=== PATIENT | female | born 1975 | race Caucasian/White ===

== ENCOUNTER → 2016-12-11 | Outpatient (CLI) | payer OTHER ==
--- NOTE | 2016-12-11 09:32 | MM ---
Reason for exam: screening (asymptomatic). Baseline mammogram. Physical Findings: Nurse did not find any significant physical abnormalities on exam. MG Screening Mammo w CAD Bilateral CC and MLO view(s) were taken. The breast tissue is heterogeneously dense. This may lower the sensitivity of mammography. Finding: There are grouped/clustered calcifications in the upper outer quadrant of the left breast. These results were verbally communicated with the patient and result sheet given to the patient on 12/11/16. ASSESSMENT: Incomplete: need additional imaging evaluation, BI-RAD 0 RECOMMENDATION: Special view mammogram of the left breast. [facility] will attempt to contact patient to return for supplemental views.
--- NOTE | 2016-12-11 09:34 | MM ---
Reason for exam: additional evaluation requested from abnormal screening. Physical Findings: Breast exam preformed at baseline screening. MG Work Up Mamm w CAD LT ML, ML with magnification, and CC with magnification view(s) were taken of the left breast. The breast tissue is heterogeneously dense. This may lower the sensitivity of mammography. Finding: There is a 3.6mm group of calcifications in the upper outer quadrant, middle depth of the left breast most of which are rounded and probably benign. No suspicious abnormality on the right breast. These results were verbally communicated with the patient and result sheet given to the patient on 12/11/16. ASSESSMENT: Probably benign, BI-RAD 3 RECOMMENDATION: Follow-up diagnostic mammogram of the left breast in 6 months.
== END | disposition home or self-care (01) ==
LOC: RADMAMWWP 08:05
PROVIDERS: ATTEND Family Medicine
DX: Z12.31 Encounter for screening mammogram for malignant neoplasm of breast (principal); R92.8 Other abnormal and inconclusive findings on diagnostic imaging of breast
CPT/HCPCS: G0202; G0206

== ENCOUNTER → 2018-11-10 | Outpatient (CLI) | payer BC, OTHER ==
--- NOTE | 2018-11-10 15:24 | US ---
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 TECHNIQUE/FINDINGS: Targeted ultrasound was performed of the left popliteal fossa for the palpable ab normality. 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
== END | disposition home or self-care (01) ==
LOC: RADUSWWP 14:51
PROVIDERS: ATTEND Family Medicine
DX: M71.22 Synovial cyst of popliteal space [Baker], left knee (principal)